=== PATIENT | male | born 1970 | race Caucasian/White ===

== ENCOUNTER 2023-01-03 22:08 | Inpatient (IN) | payer BC ==
[~2023-01-03] VITALS: Ht 177.8 cm; Wt 129.4 kg
[2023-01-03 22:18] VITALS: BP_SYST 128; PULSE 102; RESP 18; TEMP 97.8; O2SAT 98
[2023-01-03 22:47] LABS: BASOPHILS # (AUTO) 0.1 K/uL (0.0-0.2); BASOPHILS % (AUTO) 0.6 % (0.0-2.0); EOSINOPHILS % (AUTO) 0.2 % (0.0-4.0); HEMOGLOBIN 13.3 g/dL (14.0-18.0); LYMPHOCYTES # (AUTO) 1.3 K/uL (1.0-5.5); LYMPHOCYTES % (AUTO) 13.3 % (20.5-51.5); MEAN CORPUSCULAR HEMOGLOBIN 30 pg (27-31); MEAN CORPUSCULAR HGB CONC 33 % (32-36); MEAN CORPUSCULAR VOLUME 91 fL (79.0-98.0); MONOCYTES # (AUTO) 0.7 K/uL (0.0-1.0); MONOCYTES % (AUTO) 7.2 % (1.7-9.3); NEUTROPHILS # (AUTO) 7.9 K/uL (1.8-7.7); NEUTROPHILS % (AUTO) 78.7 % (40.0-70.0); PLATELET COUNT (AUTO) 268 K/uL (130-430); RED BLOOD CELL COUNT(AUTO) 4.42 MIL/uL (4.2-6.2); RED CELL DISTRIBUTION WIDTH 13.8 % (9.0-15.0)
[2023-01-03 22:48] LABS: BILIRUBIN,URINE NEGATIVE (NEGATIVE); BLOOD, URINE NEGATIVE (NEGATIVE); CLARITY/URINE Clear (CLEAR); COLOR,URINE YELLOW (YELLOW); GLUCOSE,URINE NEGATIVE (NEGATIVE); LEUKOCYTE ESTERASE ,URINE NEGATIVE (NEGATIVE); NITRITE, URINE NEGATIVE (NEGATIVE); PH,URINE 5.5 (5.0-8.0); PROTEIN URINE NEGATIVE (NEGATIVE); UROBILINOGEN,URINE 0.2 (0.2-1.0)
[2023-01-03 22:54] LABS: KETONES,URINE TRACE (NEGATIVE)
[2023-01-03 22:58] LABS: ANION GAP 9 (5-15); CALCIUM 8.2 mg/dL (8.4-11.0); CARBON DIOXIDE 26 mmol/L (23-29); CHLORIDE 101 mmol/L (98-107); CREATININE 0.88 mg/dL (0.55-1.30); GFR AFRICAN AMERICAN 117 mL/min (>90); GLUCOSE 122 mg/dL (74-106); POTASSIUM 3.2 mmol/L (3.5-5.1); SODIUM SERUM 136 mmol/L (136-145); UREA NITROGEN, BLOOD 21 mg/dL (8-21)
[2023-01-03 23:02] LABS: GFR NON AFRICAN-AMERICAN 96 mL/min (>90)
[2023-01-03 23:05] LABS: ALANINE AMINOTRANSFERASE 21 U/L (12-78); ALBUMIN 3.8 g/dL (3.4-4.8); ASPARTATE AMINOTRANSFERASE 18 U/L (10-37); CREATINE KINASE, TOTAL 244 U/L (39-308); PHOSPHORUS 2.8 mg/dL (2.7-4.5); TOTAL BILIRUBIN 0.3 mg/dL (0.0-1.0); TOTAL PROTEIN, SERUM 7.5 g/dL (6.4-8.3)
[2023-01-03 23:28] LABS: PROTHROMBIN TIME 10.4 SECS (9.5-12.5)
[2023-01-04] MEDS: NITROGLYCERIN 0.4 MG TAB.SUBL SL ONE (00:03)
[2023-01-04] MEDS: NITROGLYCERIN 1 INCH (GM) OINT. TP ONE (00:04)
[2023-01-04] MEDS: NACL 0.9% 1,000 ML IV ONE (00:11)
[2023-01-04] MEDS: MORPHINE 4 MG INJ. 4 MG/ML VIAL IVP ONE (00:33)
[2023-01-04] MEDS: ONDANSETRON HCL 4 MG/2 ML VIAL IVP ONE (00:33)
[2023-01-04] MEDS: POTASSIUM CHLORIDE 20 MEQ/PKT PACKET PO ONE (00:33)
[2023-01-04] MEDS ORDERED: *LOVENOX 1MG/KG Q24H/PHARMACY XX ONE (01:45)
[2023-01-04 02:36] VITALS: BP_SYST 120; PULSE 80; O2SAT 98
[2023-01-04 03:27] VITALS: BP_SYST 107; PULSE 60; RESP 18; TEMP 97.7
[2023-01-04] MEDS ORDERED: *HEPARIN PER PHARMACY XX ONE (03:45)
[2023-01-04] MEDS ORDERED: HEPARIN 25,000 UNITS/D5W 250ML 250 ML IV PRN ×2 (05:00→09:15)
[2023-01-04] MEDS ORDERED: IPRATROPIUM/ALBUTEROL SULFATE 3 ML AMPUL.NEB (DUONEB) INH PRN (05:00)
[2023-01-04] MEDS ORDERED: *HEPARIN PER PHARMACY XX PRN (05:15)
[2023-01-04] MEDS ORDERED: HEPARIN SODIUM,PORCINE 3000 UNITS/0.6 ML BOLUS IVP PRN (06:45)
[2023-01-04] MEDS ORDERED: HEPARIN SODIUM,PORCINE 2000 UNITS/0.4 ML BOLUS IVP PRN (06:45)
[2023-01-04] MEDS ORDERED: HEPARIN SODIUM,PORCINE 5,000 UNITS/ML VIAL IV ONE (06:45)
[2023-01-04 07:28] LABS: CHOLESTEROL 140 mg/dL (<200); HDL CHOLESTEROL 60 mg/dL (>45); TRIGLYCERIDES 56 mg/dL (30-150)
[2023-01-04] MEDS ORDERED: *LOVENOX 1MG/KG Q12H/PHARMACY XX PRN (08:45)
[2023-01-04] MEDS: HEPARIN SODIUM,PORCINE 5,000 UNITS/ML VIAL IV ONE (08:47)
[2023-01-04] MEDS: HEPARIN 25,000 UNITS in 250 ML PREMIX IV PRN (08:51)
[2023-01-04] MEDS: ASPIRIN 81 MG TAB.CHEW PO SCH (09:05)
[2023-01-04] MEDS: ENOXAPARIN SODIUM SUBCUT ONE ×2 (09:46)
[2023-01-04 11:49] VITALS: BP_SYST 98; PULSE 59; RESP 18; TEMP 97.7; O2SAT 97
[2023-01-04 13:28] VITALS: BP_SYST 112; PULSE 70; RESP 18; TEMP 98.1; O2SAT 100
[2023-01-04] MEDS ORDERED: ENOXAPARIN SODIUM SUBCUT SCH ×2 (21:00)
== END 2023-01-04 14:45 | disposition short-term general hospital (02) | DRG 281 ==
LOC: SED 22:08 → STU 01-04 01:20
PROVIDERS: ADMIT General Practice; ATTEND General Practice
DX: I21.4 Non-ST elevation (NSTEMI) myocardial infarction (principal); Z68.41 Body mass index [BMI] 40.0-44.9, adult; E78.5 Hyperlipidemia, unspecified; J45.909 Unspecified asthma, uncomplicated; E87.6 Hypokalemia; E66.01 Morbid (severe) obesity due to excess calories; Z98.84 Bariatric surgery status; Z87.891 Personal history of nicotine dependence
CPT/HCPCS: 36415; 70450-TC; 71045; 76376; 80053; 80061; 81003; 82550; 83735; 83880; 84100; 84443; 84484; 85025; 85379; 85610-TC; 85730-TC; 93005; 93306; G0378; J1644; J1650; J2270; J2405